=== PATIENT | female | born 1965 | race Caucasian/White ===

== ENCOUNTER → 2016-05-19 | Outpatient (CLI) | payer MEDICAID ==
--- NOTE | 2016-05-19 16:29 | MR ---
EXAMINATION TYPE: MR lumbar spine wo con DATE OF EXAM: 05/19/2016 4:17 PM COMPARISON: Prior MRI lumbar spine February 28, 2014. HISTORY: LBP, bilat thigh radic, urinary frequency, loss of bladder strength/incontinence TECHNIQUE: Multiplanar, multisequence imaging of the lumbar spine is performed without IV contrast. FINDINGS: Sagittal images of the lumbar spine show vertebral body heights and alignment to remain sat isfactory. Multilevel disc desiccation is redemonstrated in the mid to lower lumbar spine. There is m oderate disc space narrowing with vacuum disc phenomenon L5-S1 level redemonstrated. No large posteri or disc herniations are seen on sagittal images. The conus medullaris remains normal in position and signal ending at superior L1 vertebral body level. Small Tarlov cyst posterior S2-S3 level on sagitta l image 9 is redemonstrated measuring 14 mm. There is overall slight heterogeneity both marrow signal intensity redemonstrated with heterogeneous increased T1 and T2 signal consistent with Modic type II degenerative change most prominent in right inferior L5 endplate redemonstrated. Mild multilevel ant erior spurring is present. Axial images show the T12-L1 and L1-L2 levels to remain within normal limits. Axial images at the L2-L3 level show mild broad disc bulge and mild facet degenerative changes bilate rally. There is minimal to mild effacement of the anterior and posterior lateral thecal sac redemonst rated. Bilateral neural foramina remain patent. No significant change from prior study is seen. Axial images at L3-L4 level show mild facet degenerative changes bilaterally and mild broad disc bulg e on axial image 26. There is mild effacement of the anterior and posterior lateral thecal sac redemo nstrated. Bilateral neural seen. No significant change from prior study is identified. Foramina show mild anterior inferior neural foraminal narrowing. No significant change from prior study is seen. Axial images at L4-L5 level show mild to moderate facet degenerative changes and ligamentum flavum hy pertrophy with some effacement of the posterior lateral thecal sac. There is broad-based central disc protrusion mildly effacing anterior thecal sac. There is mild bilateral anterior inferior neural for aminal narrowing. Axial images at L5-S1 level show moderate facet degenerative changes bilaterally with broad-based jessica tral disc protrusion. There is some effacement anterior and posterior lateral thecal sac. There is mo derate bilateral neural foraminal narrowing slightly more prominent on the left side. It may be split ting of left L5 nerve at foraminal level on sagittal image 4, this is unchanged from prior study. There is additional Tarlov cyst or neural sheath prominence right S2 foraminal level on axial image 5 noted. IMPRESSION: Multilevel degenerative changes in the mid to lower lumbar spine as detailed above with f indings most prominent at L5-S1 level redemonstrated. No significant change identified with compariso n to prior MRI February 28, 2014.
== END | disposition home or self-care (01) ==
LOC: RADMRIMAIN 15:03
PROVIDERS: ATTEND Radiology Diagnostic Radiology
DX: M47.27 Other spondylosis with radiculopathy, lumbosacral region (principal); R32 Unspecified urinary incontinence; R93.49 Abnormal radiologic findings on diagnostic imaging of other urinary organs
CPT/HCPCS: 72148

== ENCOUNTER → 2016-08-20 | Outpatient (CLI) | payer MEDICAID ==
[2016-08-20 18:06] LABS: Basophils # (A) 0.1 k/uL (0-0.2); Basophils % (A) 1 %; CH 27.3; CHCM 32.2; Eosinophils # (A) 0.1 k/uL (0-0.7); Eosinophils % (A) 2 %; HCT 41.8 % (34.0-46.0); HDW 2.49; Luc # (Auto) 0.08; Luc % (Auto) 2; Lymphocytes # (A) 1.5 k/uL (1.0-4.8); Lymphocytes % (A) 28 %; MCH 28.6 pg (25.0-35.0); MCHC 33.5 g/dL (31.0-37.0); MCV 85.2 fL (80.0-100.0); Mean Platelet Volume 8.9; Monocytes # (A) 0.3 k/uL (0-1.0); Monocytes % (A) 6 %; Neutrophils # (A) 3.4 k/uL (1.3-7.7); Neutrophils % (A) 61 %; RBC 4.91 m/uL (3.80-5.40); RDW 12.9 % (11.5-15.5); WBC 5.5 k/uL (3.8-10.6); WBC (Perox) 5.75
[2016-08-20 18:15] LABS: ALT 49 U/L (9-52); AST 31 U/L (14-36); Alkaline Phosphatase 85 U/L (38-126); Anion Gap 13 mmol/L; Blood Urea Nitrogen 17 mg/dL (7-17); Carbon Dioxide 26 mmol/L (22-30); Chloride 105 mmol/L (98-107); Cholesterol 180 mg/dL (<200); Glucose 87 mg/dL (74-99); HDL Cholesterol 43 mg/dL (40-60); Non-African American GFR(MDRD) >60 (>60 ml/min/1.73 sqM); Potassium 4.3 mmol/L (3.5-5.1); Sodium 144 mmol/L (137-145); Total Bilirubin 0.9 mg/dL (0.2-1.3); Total Protein 7.3 g/dL (6.3-8.2); Triglycerides 154 mg/dL (<150)
[2016-08-20 19:02] LABS: Vitamin B12 866 pg/mL (239-931)
== END ==
LOC: MMGSC 11:37
PROVIDERS: ATTEND Family Medicine
DX: G47.00 Insomnia, unspecified (principal); R53.83 Other fatigue; R63.5 Abnormal weight gain
CPT/HCPCS: 36415; 80053; 80061; 82306; 82607; 84439; 84443; 85025

== ENCOUNTER → 2017-04-08 | Outpatient (CLI) | payer MEDICAID ==
--- NOTE | 2017-04-08 11:43 | MM ---
Reason for exam: additional evaluation requested from prior study. Last mammogram was performed 2 years ago. History: Family history of breast cancer in grandmother. Took hormonal contraceptives beginning at age 37. Physical Findings: Nurse did not find any significant physical abnormalities on exam. MG 3D Diag Mammo W/Cad NAZARIO Bilateral CC and MLO view(s) were taken. Prior study comparison: April 07, 2015, bilateral MG 3d screening mammo w/cad. June 11, 2013, bilateral digital screening mammo w/CAD. There are scattered fibroglandular densities. No suspicious abnormality. Left retroareolar masses are no longer present and likely represent resolved cysts. These results were verbally communicated with the patient and result sheet given to the patient on 04/08/17. ASSESSMENT: Negative, BI-RAD 1 RECOMMENDATION: Routine screening mammogram of both breasts in 1 year.
== END | disposition home or self-care (01) ==
LOC: RADMAMWWP 10:12
PROVIDERS: ATTEND Family Medicine
DX: R92.8 Other abnormal and inconclusive findings on diagnostic imaging of breast (principal)
CPT/HCPCS: 77066; G0279

== ENCOUNTER 2018-08-14 19:29 | Emergency (ER) | payer MEDICAID ==
[2018-08-14 19:41] VITALS: RESP 18
[2018-08-14] MEDS ORDERED: KETOROLAC 30 MG/ML 1 ML VIAL IM STA (20:09)
--- NOTE | 2018-08-14 20:27 | XR ---
EXAMINATION TYPE: XR ankle complete RT DATE OF EXAM: 08/14/2018 COMPARISON: NONE HISTORY: Ankle pain after falling TECHNIQUE: 3 views FINDINGS: There is oblique fracture distal fibula. There is transverse fracture medial malleolus. The re is a 2 x 1 cm chip fracture of the posterior malleolus. There is minimal posterior subluxation of the talus. There is a plantar calcaneal spur. Calcaneus is intact. IMPRESSION: There is trimalleolar fracture of the right ankle. Minimal posterior subluxation of the t alus.
[2018-08-14] MEDS ORDERED: HYDROmorphone 0.5 MG/0.5 ML SYRINGE IM STA (21:10)
--- NOTE | 2018-08-14 21:53 | ED ---
Fall HPI - General Chief Complaint: Fall Stated Complaint: Fall-Poss Broken Ankle Time Seen by Provider: 08/14/18 19:45 Source: patient Mode of arrival: wheelchair - History of Present Illness Initial Comments: Patient is a 52-year-old female presents emergency Department with right ankle pain. Patient reports that earlier today she was up on a ladder when she lost balance and fell off of it approximately 5 feet off the ground. She initially made contact with the right ankle. Patient denies any trauma to the head. Patient reports pain in the distal right lower leg. Patient reports the pain is a 10 and throbbing sharp reports the pain is exacerbated with weightbearing and alleviated at rest. Patient denies taking the medication to alleviate the symptoms. Patient denies any numbness or tingling. - Related Data Home Medications Medication Instructions Recorded Confirmed Meclizine [Antivert] 25 mg PO HS 09/27/13 08/16/18 clonazePAM [KlonoPIN] 0.5 mg PO HS 09/27/13 08/16/18 Ibuprofen [Advil] 400 mg PO BID PRN 09/15/15 08/16/18 traMADol HCL [Tramadol HCl] 50 mg PO Q6H PRN 09/15/15 08/16/18 Famotidine [Pepcid AC] 10 mg PO DAILY PRN 08/16/18 08/16/18 Levonorgestrel [Mirena] 1 each IY DIRECTED 08/16/18 08/16/18 Multivitamins, Thera [Multivitamin 1 tab PO DAILY 08/16/18 08/16/18 (formulary)] Previous Rx's Medication Instructions Recorded Hydrocodone/Acetaminophen [[place] 1 tab PO Q6HR PRN #12 tab 08/14/18 5-325] Allergies Allergy/AdvReac Type Severity Reaction Status Date / Time hydrocodone [From [place]] Allergy Itching Verified 08/18/18 09:20 morphine Allergy Rash/Hives Verified 08/16/18 12:55 erythromycin base AdvReac Severe Nausea & Verified 08/16/18 12:55 [Erythromycin Base] Vomiting Review of Systems ROS Statement: Those systems with pertinent positive or pertinent negative responses have been documented in the HPI. ROS Other: All systems not noted in ROS Statement are negative. Past Medical History Past Medical History: Liver Disease Additional Past Medical History / Comment(s): RESTLESS LEG, FATTY LIVER. BACK PAIN. History of Any Multi-Drug Resistant Organisms: None Reported Past Surgical History: Tubal Ligation Additional Past Surgical History / Comment(s): cervical fusion, had reversal of tubal ligation,pain clinic injections Past Anesthesia/Blood Transfusion Reactions: Motion Sickness Additional Past Anesthesia/Blood Transfusion Reaction / Comment(s): motion sick on boat with back & forth movement- pt also has Hx vertigo, Pt's Mother also had stopped breathing with one surgery Past Psychological History: No Psychological Hx Reported Smoking Status: Former smoker Past Alcohol Use History: Rare Past Drug Use History: None Reported - Past Family History Father Family Medical History: Coronary Artery Disease (CAD), Hyperlipidemia, Myocardial Infarction ([place]), Renal Disease Additional Family Medical History / Comment(s): ANKYSLOSING SPONYLOSIS, STENTS, PARKINSONS, 4 HIP REPLACEMENTS Mother Family Medical History: No Reported History Additional Family Medical History / Comment(s): EMPYSEMA, General Exam Limitations: no limitations General appearance: alert, in no apparent distress Head exam: Present: atraumatic, normocephalic, normal inspection Eye exam: Present: normal appearance, PERRL, EOMI Pupils: Present: normal accommodation ENT exam: Present: normal exam, mucous membranes moist, normal external ear exam Neck exam: Present: normal inspection, full ROM Cardiovascular Exam: Present: regular rate, normal rhythm, normal heart sounds Extremities exam: Present: normal inspection (Right ankle swelling), tenderness (Tenderness along the lateral and medial malleoli. Tenderness along the distal lower leg.), normal capillary refill, joint swelling, other (+2 dorsalis pedis and posterior tibialis, bilaterally.). Absent: full ROM (Limited range of motion of the pain), calf tenderness Back exam: Present: normal inspection, full ROM Neurological exam: Present: alert, oriented X3 Psychiatric exam: Present: normal affect, normal mood Skin exam: Present: warm, intact, normal color Course Vital Signs 08/14/18 08/14/18 19:39 22:11 Temperature 98.9 F 98.8 F Pulse Rate 88 74 Respiratory 18 18 Rate Blood Pressure 130/88 107/62 O2 Sat by Pulse 99 96 Oximetry Procedures - Orthopedic Splinting/Casting Injury #1 Side: right Lower Extremity Injury Location: ankle Lower Extremity Immobilizer: posterior splint Other Orthopedic Equipment: crutches Medical Decision Making - Medical Decision Making Patient is a 52-year-old presented to emergency department with right ankle pain. X-ray of the right ankle is suggestive of a trimalleolar fracture. I initially spoke with jenelle strickland who is the orthopedic physician project administrative assistant. I received a phone call from the attending orthopedic physician, Dr. Hook, who suggested I place the patient on a posterior splint and they will be seen in his office on Tuesday morning for a surgical consult. Patient was given Toradol for pain with minimal improvement. Patient was also given Dilaudid. Patient was also given a prescription for crutches. Patient advised to follow-up with Dr. Hook for further management who is understanding and agreeable. Case discussed with physician. Disposition Clinical Impression: Trimalleolar fracture Disposition: HOME SELF-CARE Condition: Stable Instructions (If sedation given, give patient instructions): Fall Prevention for Older Adults (ED) Additional Instructions: Please take prescribed medication as directed. please follow-up with orthopedics. Please return to emergency department if symptoms worsen. Prescriptions: Hydrocodone/Acetaminophen [[place] 5-325] 1 tab PO Q6HR PRN #12 tab PRN Reason: Pain Is patient prescribed a controlled substance at d/c from ED?: No Referrals: Tatiana Chopra MD [Primary Care Provider] - 1-2 days Jean Hook MD [STAFF PHYSICIAN] - 1-2 days Time of Disposition: 21:52
[2018-08-14 22:13] VITALS: BP 107/62; PULSE 74; TEMP 98.8
== END 2018-08-14 22:11 | disposition home or self-care (01) ==
LOC: EC 19:29
DX: S82.851A Displaced trimalleolar fracture of right lower leg, initial encounter for closed fracture (principal); Z87.891 Personal history of nicotine dependence; Z79.3 Long term (current) use of hormonal contraceptives; Z79.899 Other long term (current) drug therapy; Z88.1 Allergy status to other antibiotic agents; Z88.5 Allergy status to narcotic agent; W11.XXXA Fall on and from ladder, initial encounter; Y92.89 Other specified places as the place of occurrence of the external cause
CPT/HCPCS: 73610; 99283; 29515; 96372 ×2; J1885; J1170

== ENCOUNTER 2018-08-18 07:50 | Observation (INO) | payer MEDICAID ==
[2018-08-16 13:16] VITALS: BMI 33.0
[~2018-08-18 07:50] MED LIST: ceFAZolin IN SWFI 2 GM/20 ML SYRINGE IVP ONE; ceFAZolin IN SWFI 2 GM/20 ML SYRINGE IVP SCH
--- NOTE | 2018-08-18 07:50 | HP ---
HISTORY AND PHYSICAL CHIEF COMPLAINT: Right ankle pain. HISTORY OF PRESENT ILLNESS: The patient is a 52-year-old female who presents with right ankle pain after an injury on 08/14/2018. She fell off a ladder in her home driveway and landed on the right ankle. Afterward, she was unable to put weight on that leg. She was initially seen in the emergency room and placed in a splint. She has been nonweightbearing since. PAST MEDICAL HISTORY: Otherwise, significant for reflux disease. PAST SURGICAL HISTORY: Significant for cholecystectomy, tubal ligation with subsequent reversal and cervical fusion. CURRENT MEDICATIONS: 1. Meclizine. 2. Prevacid. 3. VESIcare. 4. Tramadol. ALLERGIES: MORPHINE and ERYTHROMYCIN. FAMILY HISTORY: Significant for cancer and heart disease. SOCIAL HISTORY: Negative for current tobacco or alcohol use. REVIEW OF SYSTEMS: A 16-point review of systems is otherwise reviewed and is noncontributory. PHYSICAL EXAMINATION: The patient is approximately 5 foot 10, 220 pounds of endomorphic habitus. HEENT: Exam is nonfocal. NECK: Supple. She has painless passive motion of the right hip. Straight leg raise is negative. She is nontender about the right knee and proximal fibula. On examination of her right ankle, she has moderate lateral and medial swelling. She is tender over the distal fibula and over the medial malleolus. Skin is intact. No mid or forefoot tenderness is noted. Her distal neurovascular exam appears to be intact in the right lower extremity. X-rays from 08/14/2018 were reviewed and reveal a trimalleolar ankle fracture with moderate displacement. IMPRESSION: Displaced right trimalleolar ankle fracture. RECOMMENDATIONS: I talked to the patient at length regarding her condition along with treatment options. At this point, recommend proceeding with surgical intervention. We will plan to proceed with open reduction and internal fixation. Potentially, we will keep the patient for a 23-hour hold postoperatively. Risks and benefits were discussed at length in layman's terms. MMODL / IJN: [id number] /
[2018-08-18] MEDS ORDERED: MIDAZOLAM (PF) 2 MG/2 ML VIAL IV ONE ×2 (10:40)
[2018-08-18] MEDS ORDERED: ROPIVACAINE 5 MG/ML 30 ML VIAL ONE (10:58)
[2018-08-18] MEDS ORDERED: SUCCINYLCHOLINE CHLORIDE 100 MG/5 ML SYR IV ONE (10:58)
[2018-08-18] MEDS ORDERED: PROPOFOL 10 MG/ML 20 ML VIAL IV ONE (10:58)
[2018-08-18] MEDS ORDERED: fentaNYL (PF) 50 MCG/ML 2 ML AMP ONE (10:58)
[2018-08-18] MEDS ORDERED: ePHEDrine SULFATE/0.9% NACL/PF 50 MG/5 ML SYRINGE IV ONE (10:58)
[2018-08-18] MEDS ORDERED: LIDOCAINE 1% INJ 10MG/ML (20 ML MDV) ONE (10:58)
[2018-08-18] MEDS ORDERED: LACTATED RINGERS 1,000 ML IV ONE ×2 (11:02→12:18)
--- NOTE | 2018-08-18 11:25 | P.ANPRN ---
Procedure Note - Anesthesia - Nerve Block Performed Right Popliteal Single Time Out Performed: Yes Date of Procedure: 08/18/18 Procedure Start Time: 10:40 Procedure Stop Time: 10:44 Location of Patient Procedure: PreOp Indication: Acute Post-Operative Pain, Dx/Pain Location (Right Ankle Pain), Requested by physician Sedation Type: Sedate with meaningful contact maintained Preparation: Sterile Prep Position: Supine Catheter: Indwelling Needle Types: On-Q Needle Gauge: 21 Technique: Ultrasound Injectate: 0.5% Ropivacaine (see comment for volume) Blood Aspirated: No Pain Paresthesia on Injection Noted: No Resistance on Injection: Normal Events: Uneventful and Well Tolerated
[2018-08-18] MEDS ORDERED: ceFAZolin 1,000 MG in SODIUM CHLORIDE 0.9% 1,000 ML IRRIGATION ONE (11:31)
[2018-08-18] MEDS ORDERED: HYDROmorphone 1 MG/ML 1 ML SYRINGE IVP PRN (12:38)
[2018-08-18] MEDS ORDERED: ONDANSETRON 4 MG/2 ML VIAL IVP PRN (12:38)
[2018-08-18] MEDS ORDERED: KETOROLAC 30 MG/ML 1 ML VIAL IVP PRN (12:41)
[2018-08-18] MEDS ORDERED: ACETAMINOPHEN TAB 325 MG TAB PO PRN (12:41)
--- NOTE | 2018-08-18 12:44 | P.OP ---
Date of Procedure: 08/18/18 Preoperative Diagnosis: Displaced right trimalleolar ankle fracture Postoperative Diagnosis: Same Procedure(s) Performed: Open reduction and internal fixation right trimalleolar ankle fracture Implants: Arthrex 6-hole one third tubular plate, 4.0 mm x 42 mm cannulated cancellus screws 2 [facility]: Jean Hook Hem Inspector #1: Mark Quijano Estimated Blood Loss (ml): 10 Pathology: none sent Condition: stable Disposition: PACU Indications for Procedure: The patient's a 52-year-old female who presents after falling off a ladder injuring her right ankle. Upon evaluation she was noted closed displaced right trimalleolar ankle fracture. A discussion of the risks and benefits of operative intervention was made with patient she opted to proceed with surgery. Operative risks to include infection, neurovascular injury, development of blood clots, possible development nonunion/malunion, and possible need for subsequent procedures was discussed. Informed consent was obtained. Operative Findings: As below Description of Procedure: The patient was brought to the operating room, and after induction of general anesthesia the right lower extremity was prepped and draped in normal fashion. The tourniquet was inflated to 270 mmHg. An 8 cm incision was then made along the posterior lateral border of the right fibula. The skin was incised sharply. Subcutaneous tissues were divided bluntly. Electrocautery was used for hemostasis. The periosteum was elevated and the fracture site was identified and cleaned of clot and debris. It was provisionally reduced with a reduction clamp. An anterior to posterior lag screw was then placed. This was a 3.5 mm cortical screw of the appropriate length. A lateral neutralization plate was then placed utilizing a 6-hole one third tubular plate that was appropriately contoured. A 3.5 mm cortical screws were placed proximally and 4.0 mm cancellus screws distally. This is done with the aid of fluoroscopy. Attention was then paid towards the medial malleolar fragment. A 4 cm incision was made over the medial malleolus. The skin was incised sharply. Subcutaneous tissues were divided bluntly. The periosteum was elevated and the fracture site cleaned of clot and debris. The medial talar dome was inspected. The fracture was then reduced and held in place with a dental pick. 2 guidewires were then inserted and this is verified with fluoroscopy. The cannulated drill was used over these. 4.0 mm x 42 mm partially threaded cancellus screws were inserted over the guidewires. There was good compression at the fracture site. Final fluoroscopic views to include AP, lateral, and mortise views showed adequate reduction of the mortise and worship of fibular length. The posterior malleolar fragment lined up well as well as the articular surface. I did not feel the need for additional fixation at this point. The wounds were irrigated with normal saline. The subcutaneous tissues were reapproximated interrupted 2- 0 Vicryl sutures. The skin was reapproximated with 3-0 subcuticular Prolene suture. Steri-Strips were applied. A sterile dressing was applied in addition to a bulky splint. The tourniquet was deflated with approximately 60 minutes total tourniquet time. The patient was awoken from general anesthesia and transferred to recovery room in good condition. Blood loss was estimated at 10 mL. No complications were incurred. Sponge and needle counts were correct at the case.
[2018-08-18] MEDS: HYDROmorphone 1 MG/ML 1 ML SYRINGE IVP ONE ×4 (12:51→13:21)
--- NOTE | 2018-08-18 13:43 | FL ---
EXAMINATION TYPE: FL guidance operating room, XR ankle limited RT DATE OF EXAM: 08/18/2018 COMPARISON: NONE HISTORY: 52 year-old female right ankle ORIF FINDINGS: Images during right ankle ORIF bimalleolar ankle fixation. FLUOROSCOPY Fluoroscopy time of 13 seconds was used during right ankle ORIF. 2 image/s document/s the procedure. IMPRESSION: Fluoroscopy as above.
[2018-08-18] MEDS: traMADol 50 MG TAB PO SCH ×3 (14:06→21:16)
[2018-08-18] MEDS: ceFAZolin IN SWFI 2 GM/20 ML SYRINGE IVP SCH (15:47)
[2018-08-18] MEDS: ENOXAPARIN 40 MG/0.4 ML SYRINGE SQ SCH (17:17)
[2018-08-18] MEDS: ONDANSETRON 4 MG/2 ML VIAL IVP PRN (22:45)
[2018-08-19] MEDS: ceFAZolin IN SWFI 2 GM/20 ML SYRINGE IVP SCH (00:33)
[2018-08-19] MEDS: HYDROmorphone 0.5 MG/0.5 ML SYRINGE IVP PRN ×2 (01:59→05:26)
--- NOTE | 2018-08-19 07:00 | P.CONS ---
History of Present Illness - Reason for Consult Consult date: 08/19/18 post operative medical management Requesting physician: Jean Hook - Chief Complaint right ankle pain - History of Present Illness 52-year-old female with no significant past medical history Patient presented to the hospital due to intense worsening of right ankle pain of 3-4 days' duration since falling on a ladder at home. Patient reports falling on Tuesday afternoon immediately felt pain in her right ankle she went to an urgent care and was placed in a splint however pain was getting worse she wasn't able to walk around or weight-bear after further testing she was found to have a trimalleolar fracture displaced of the right ankle for which surgical repairs were recommended. Patient is seen postoperative day one post surgical repair of her right knee with open reduction and internal fixation patient tolerated procedure well denies any chest pain or trouble breathing denies any fevers or chills she reports that pain is still not well-controlled and she is trying different medications. Otherwise denies any other complaints at this point Review of Systems Pertinent positives as noted in HPI. All other systems were reviewed and are negative Past Medical History Past Medical History: GERD/Reflux, Liver Disease, Musculoskeletal Disorder Additional Past Medical History / Comment(s): RESTLESS LEG; FATTY LIVER; VERTIGO; CHRONIC BACK PAIN. OCC GERD. RT ANKLE FX CURRENTLY, IN SPLINT. VARICOSE VEINS. History of Any Multi-Drug Resistant Organisms: None Reported Past Surgical History: Cholecystectomy, Tubal Ligation Additional Past Surgical History / Comment(s): Cervical fusion; Reversal of Tubal Ligation, Pain clinic injections. Past Anesthesia/Blood Transfusion Reactions: Family History of Problems w/ Anesthesia, Motion Sickness Additional Past Anesthesia/Blood Transfusion Reaction / Comm: Motion sick on boat w/ back/forth movement- pt also has Hx vertigo; Mother had stopped breathing R/T IV CONTRACT W/ surgery, SISTER HAS PONV. Past Psychological History: No Psychological Hx Reported Smoking Status: Former smoker Past Alcohol Use History: Occasional Additional Past Alcohol Use History / Comment(s): STARTED SMOKING AT AGE 13, SMOKED 2 PACKS PER WEEK, QUIT 2002 Past Drug Use History: None Reported - Past Family History Father Family Medical History: Coronary Artery Disease (CAD), Hyperlipidemia, Myocardial Infarction ([place]), Renal Disease Additional Family Medical History / Comment(s): ANKYSLOSING SPONYLOSIS, STENTS, PARKINSONS, 4 HIP REPLACEMENTS Mother Family Medical History: No Reported History Additional Family Medical History / Comment(s): EMPHYSEMA, Medications and Allergies Home Medications Medication Instructions Recorded Confirmed Type Meclizine [Antivert] 25 mg PO HS 09/27/13 08/16/18 History clonazePAM [KlonoPIN] 0.5 mg PO HS 09/27/13 08/16/18 History Ibuprofen [Advil] 400 mg PO BID PRN 09/15/15 08/16/18 History traMADol HCL [Tramadol HCl] 50 mg PO Q6H PRN 09/15/15 08/16/18 History Hydrocodone/Acetaminophen [[place] 1 tab PO Q6HR PRN #12 tab 08/14/18 08/16/18 Rx 5-325] Famotidine [Pepcid AC] 10 mg PO DAILY PRN 08/16/18 08/16/18 History Levonorgestrel [Mirena] 1 each IY DIRECTED 08/16/18 08/16/18 History Multivitamins, Thera [Multivitamin 1 tab PO DAILY 08/16/18 08/16/18 History (formulary)] Allergies Allergy/AdvReac Type Severity Reaction Status Date / Time hydrocodone [From [place]] Allergy Itching Verified 08/18/18 09:20 morphine Allergy Rash/Hives Verified 08/16/18 12:55 erythromycin base AdvReac Severe Nausea & Verified 08/16/18 12:55 [Erythromycin Base] Vomiting Physical Exam Vitals: Vital Signs Temp Pulse Resp BP BP Pulse Ox 08/19/18 01:40 99.4 F 87 16 116/72 94 L 08/18/18 18:55 97.8 F 76 16 115/75 98 08/18/18 15:28 57 L 16 98/61 88 L 08/18/18 14:45 63 107/67 95 08/18/18 14:15 97.8 F 68 16 125/79 91 L 08/18/18 13:30 68 16 105/53 95 08/18/18 13:15 69 16 106/54 100 08/18/18 13:00 65 16 126/62 100 08/18/18 12:45 68 16 113/52 100 08/18/18 12:38 97.6 F 74 16 145/62 100 08/18/18 09:53 98 F 67 18 124/68 99 07/05/19 08:31 98.7 F 70 18 112/77 96 Intake and Output 08/18/18 08/18/18 08/19/18 14:59 22:59 06:59 Intake Total 1501 Output Total 15 Balance 1486 Intake: IV 1501 Output: Estimated Blood Loss 15 Other: # Voids 1 1 3 Weight 103.419 kg Constitutional: No acute distress, conversant, pleasant Eyes: Anicteric sclerae, moist conjunctiva, no lid-lag Pupils equal round reactive to light ENMT: NC/AT Oropharynx clear, no erythema, exudates Neck: Supple, FROM, no masses, or JVD No carotid bruits No thyromegaly Lungs: Clear to auscultation Clear to percussion Normal respiratory effort, no accessory muscle use Cardiovascular: Heart regular in rate and rhythm, No murmurs, gallops, or rubs No peripheral edema Abdominal: Soft Nontender, no guarding, rebound or rigidity Abdomen moving with respiration Normoactive bowel sounds No hepatomegaly, No splenomegaly No palpable mass No abdominal wall hernia noted Skin: Normal temperature, tone, texture, turgor No induration No subcutaneous nodules No rash, lesions No ulcers Extremities: Surgical dressing over the right lower extremity, right toes are visible no swelling no tenderness to palpation capillary refill immediate sensation intact. No digital cyanosis No clubbing Pedal pulses intact and symmetrical Radial pulses intact and symmetrical No calf tenderness Psychiatric: Alert and oriented to person, place and time Appropriate affect fair judgment Neuro Muscles Strength 5/5 in all 4 extremities , limited exam over right lower extremity due to recent surgery and pain Sensation to light touch grossly present throughout Cranial nerves II-XII grossly intact No focal sensory deficits Lymphatics: no palpable cervical or supraclavicular , or inguinal lymph nodes Assessment and Plan Assessment: 52-year-old femalein significant past medical history admitted under surgical service for right ankle fracture status postsurgical repair medicine consulted for medical management Plan: Displaced trimalleolar fracture of the right ankle status post surgical repair open reduction internal fixation postoperative day one Pain management and DVT prophylaxis per orthopedic service Follow-up labs check BMP and CBC Vital signs are stable Thank you for allowing us to participate in the care of this patient. Do not hesitate to contact us with questions. Someone can be reached from the [facility] hospitalist group at all hours of the day at [phone]. [facility] physician covering for Dr laura Whittington
[2018-08-19] MEDS ORDERED: PANTOPRAZOLE 40 MG TABLET PO SCH (07:30)
[2018-08-19] MEDS: traMADol 50 MG TAB PO SCH ×2 (08:19→12:44)
[2018-08-19] MEDS: ENOXAPARIN 40 MG/0.4 ML SYRINGE SQ SCH (08:19)
[2018-08-19] MEDS: ONDANSETRON 4 MG/2 ML VIAL IVP PRN (08:23)
[2018-08-19 08:39] LABS: HCT 34.6 % (34.0-46.0); MCH 27.2 pg (25.0-35.0); MCHC 31.7 g/dL (31.0-37.0); MCV 85.6 fL (80.0-100.0); Mean Platelet Volume 8.4; Platelet Count 190 k/uL (150-450); RBC 4.04 m/uL (3.80-5.40); RDW 14.1 % (11.5-15.5); WBC 8.5 k/uL (3.8-10.6)
[2018-08-19 08:41] LABS: African American GFR (CKD) >90 (>60 ml/min/1.73 sqM); Anion Gap 8 mmol/L; Blood Urea Nitrogen 15 mg/dL (7-17); Carbon Dioxide 28 mmol/L (22-30); Chloride 103 mmol/L (98-107); Glucose 106 mg/dL (74-99); Potassium 4.5 mmol/L (3.5-5.1); Sodium 139 mmol/L (137-145)
--- NOTE | 2018-08-19 09:55 | P.PN ---
Subjective Progress Note Date: 08/19/18 Principal diagnosis: Status post ORIF right trimalleolar ankle fracture Patient is evaluated at bedside today, her is present. Patient did have some significant nausea yesterday and into this morning, she did receive some IV pain medication which she believes is the culprit She is transitioned tramadol, she's been okay since then. Block has worn off, she does notice some discomfort throughout the right ankle. Currently denies any chest pain or shortness of breath. Objective - Vital Signs Vital signs: Vital Signs Temp 98.7 F 08/19/18 06:56 Pulse 89 08/19/18 06:56 Resp 18 08/19/18 06:56 BP 121/69 08/19/18 06:56 Pulse Ox 91 L 08/19/18 06:56 Intake & Output 08/18/18 08/19/18 08/19/18 18:59 06:59 18:59 Intake Total 1501 Output Total 15 Balance 1486 Weight 103.419 kg Intake: IV 1501 Output: Estimated Blood Loss 15 Other: # Voids 1 3 - Exam Right lower extremity: Postoperative splint is in good position and condition, sensation to light touch both proximal distal to and split are intact. She is able to wiggle the toes no difficulty. - Labs CBC & Chem 7: 08/19/18 07:49 08/19/18 07:49 Labs: Abnormal Lab Results - Last 24 Hours (Table) 08/19/18 08/19/18 Range/Units 07:49 07:49 Hgb 11.0 L (11.4-16.0) gm/dL Glucose 106 H (74-99) mg/dL Assessment and Plan Plan: Assessment: Postoperative day #1 status post ORIF right trimalleolar ankle fracture Plan: Pain control, plan for discharge on tramadol and [id number] Tylenol/Motrin GI and DVT prophylaxis, aspirin 325 mg daily for 2-4 weeks Nonweightbearing right lower extremity, prescription will be placed for knee scooter Ice and elevate often Plan for discharge home today Time with Patient: Less than 30
--- NOTE | 2018-08-19 11:15 | P.PN ---
Progress Note - Text Progress Note Date: 08/19/18 Hospitalist Interval Note Patient seen and examined at bedside. She is feeling slightly nauseous and a little dizzy today. Pain is well controlled. Unsure whether she go home or not. She typically takes [id number] Prilosec every day. I have encoura ged her to take a Protonix 40 mg daily while she is on aspirin. She is in agreement with plan. Vital signs reviewed General: non toxic, no distress, appears at stated age Psych: Alert, oriented, appropriate affect Assessment/Plan: GERD- Protonix RX for 30 days at home while on ASA, the resume prior prilosec Try mallsung her fracture status post open reduction internal fixation -On aspirin as DVT prophylaxis -Pain control with Ultram -Orthopedic management Medically stable for discharge at the discretion of orthopedic surgery This is an update note for patient , for full note on 08/19 see consult. There is no charge associated with this note.
[2018-08-19 14:36] VITALS: BP 117/73; PULSE 75; RESP 16; TEMP 98.4
== END 2018-08-19 16:47 | disposition home or self-care (01) ==
LOC: OR 07:50 → 1SOBS 08:28 → 4SSUR 13:19 → OR 08-19 05:23 → 4SSUR 08-19 05:25
PROVIDERS: ADMIT Orthopaedic Surgery; ATTEND Orthopaedic Surgery
DX: S82.851A Displaced trimalleolar fracture of right lower leg, initial encounter for closed fracture (principal); K21.9 Gastro-esophageal reflux disease without esophagitis; G25.81 Restless legs syndrome; K76.0 Fatty (change of) liver, not elsewhere classified; R11.0 Nausea; R42 Dizziness and giddiness; G89.29 Other chronic pain; M54.9 Dorsalgia, unspecified; I83.90 Asymptomatic varicose veins of unspecified lower extremity; Z87.891 Personal history of nicotine dependence; Z79.899 Other long term (current) drug therapy; Z79.891 Long term (current) use of opiate analgesic; Z97.5 Presence of (intrauterine) contraceptive device; Z98.1 Arthrodesis status; Z90.49 Acquired absence of other specified parts of digestive tract; Z88.1 Allergy status to other antibiotic agents; Z88.5 Allergy status to narcotic agent; Z82.49 Family history of ischemic heart disease and other diseases of the circulatory system; Z80.9 Family history of malignant neoplasm, unspecified; Z82.0 Family history of epilepsy and other diseases of the nervous system; Z82.5 Family history of asthma and other chronic lower respiratory diseases; Z84.1 Family history of disorders of kidney and ureter; W11.XXXA Fall on and from ladder, initial encounter; Y92.008 Other place in unspecified non-institutional (private) residence as the place of occurrence of the external cause
CPT/HCPCS: 64445; 80048; 85027; 73600; 27822; G0378; C1713; J2405 ×2; J0690 ×3; J2001; J1650 ×2; J3010; J1170 ×2; J2795; J0330; J2704; J2250

== ENCOUNTER → 2019-12-18 | Outpatient (CLI) | payer MEDICAID | END | disposition home or self-care (01) | LOC: LABWHC1 11:21 | PROVIDERS: ATTEND Family Medicine | DX: Z03.818 Encounter for observation for suspected exposure to other biological agents ruled out (principal); R05 Cough | CPT/HCPCS: U0003; C9803 ==

== ENCOUNTER → 2020-02-11 | Outpatient (CLI) | payer MEDICAID ==
--- NOTE | 2020-02-12 14:07 | MM ---
Reason for exam: screening (asymptomatic). Last mammogram was performed 2 years and 10 months ago. History: Patient is postmenopausal. Family history of breast cancer in grandmother. Took hormonal contraceptives beginning at age 37. Physical Findings: A clinical breast exam by your physician is recommended on an annual basis and results should be correlated with mammographic findings. MG 3D Screening Mammo W/Cad Bilateral CC and MLO view(s) were taken. Prior study comparison: April 08, 2017, bilateral MG 3d diag mammo w/cad [facility]. April 07, 2015, bilateral MG 3d screening mammo w/cad. There are scattered fibroglandular densities. Finding: There is a 4 mm equal density (isodense), circumscribed oval mass located 4 cm from the nipple in the outer quadrant, middle position of the right breast. New finding since April 08, 2017. ASSESSMENT: Incomplete: need additional imaging evaluation, BI-RAD 0 RECOMMENDATION: Special view mammogram and ultrasound of the right breast. [facility] will attempt to contact patient to return for supplemental views and ultrasound.
== END | disposition home or self-care (01) ==
LOC: RADMAMWWP 16:11
PROVIDERS: ATTEND Obstetrics & Gynecology
DX: Z12.31 Encounter for screening mammogram for malignant neoplasm of breast (principal)
CPT/HCPCS: 77063; 77067

== ENCOUNTER → 2020-02-18 | Outpatient (CLI) | payer MEDICAID ==
--- NOTE | 2020-02-18 10:26 | MM ---
Reason for exam: additional evaluation requested from abnormal screening. Last mammogram was performed less than 1 month ago. History: Patient is postmenopausal. Family history of breast cancer in grandmother. Took hormonal contraceptives beginning at age 37. Physical Findings: Nurse did not find any significant physical abnormalities on exam. MG 3D Work Up W/Cad RT Spot compression CC, LM, and CCRM view(s) were taken of the right breast. Prior study comparison: February 11, 2020, bilateral MG 3d screening mammo w/cad. April 08, 2017, bilateral MG 3d diag mammo w/cad [facility]. The breast tissue is heterogeneously dense. This may lower the sensitivity of mammography. 5mm nodular asymmetric density appears to persist on spot 3D CC. It does not clearly move on CC rolled medial. Only questionably seen on true lateral. These results were verbally communicated with the patient and result sheet given to the patient on 02/18/20. ASSESSMENT: Incomplete: need additional imaging evaluation, BI-RAD 0 RECOMMENDATION: Ultrasound of the right breast. (7-11 o'clock)
--- NOTE | 2020-02-18 10:28 | USB ---
Reason for exam: additional evaluation requested from abnormal screening. History: Patient is postmenopausal. Family history of breast cancer in grandmother. Took hormonal contraceptives beginning at age 37. US Breast Workup Limited RT Technologist: Laisha Zhang Right limited breast ultrasound including focal area of concern, retroareolar and axilla demonstrates a 0.3 x 0.3 x 0.3cm cystic lesion at 9 o'clock versus too small to characterize and a 0.4 x 0.3 x 0.3cm cystic lesion at 9 o'clock. These may correspond to the mammographic finding. 6 month follow up mammogram recommended. Scanned 7-12 o'clock. These results were verbally communicated with the patient and result sheet given to the patient on 02/18/20. ASSESSMENT: Probably benign, BI-RAD 3 RECOMMENDATION: Follow-up diagnostic mammogram of the right breast in 6 months.
== END | disposition home or self-care (01) ==
LOC: RADMAMWWP 08:32
PROVIDERS: ATTEND Obstetrics & Gynecology
DX: R92.8 Other abnormal and inconclusive findings on diagnostic imaging of breast (principal)
CPT/HCPCS: 77061; 77065

== ENCOUNTER → 2020-02-28 | Outpatient (CLI) | payer MEDICAID ==
[2020-02-29 02:36] LABS: Ferritin 205.7 ng/mL (10.0-291.0)
== END | disposition home or self-care (01) ==
LOC: LABWHC1 14:46
PROVIDERS: ATTEND Psychiatry & Neurology Neurology
DX: G25.81 Restless legs syndrome (principal)
CPT/HCPCS: 36415; 82728; 83540